=== PATIENT | male | born 1950 | race Caucasian/White ===

== ENCOUNTER 2020-11-25 11:44 | Day surgery (SDC) | payer MEDICARE, BC ==
[~2020-11-25] VITALS: Ht 175.3 cm; Wt 81.0 kg
[2020-11-25] VITALS (10 sets, daily range): BP systolic 116–163; BP diastolic 51–69; PULSE 60–87; TEMP 97.6–98.1
[2020-11-25] MEDS ORDERED: CYMBALTA 20MG20 MG PO (13:10)
[2020-11-25] MEDS ORDERED: FLOMAX 0.40.4 MG/CAP PO (13:13)
[2020-11-25] MEDS ORDERED: MASON NATURAL2000 IU PO (13:15)
[2020-11-25] MEDS ORDERED: PRILOSEC 20MG20 MG PO (13:16)
--- NOTE | 2020-11-25 16:55 | NUR ---
Patient up from OR, spouse at bedside. Alert and oriented x 3. CBI infusing at moderate rate, urine pink. Post op fluids and post op VSS. Spouse at bedside. Denies pain or needs at this time.
--- NOTE | 2020-11-25 18:22 | NUR ---
Patient doing well, CBI continues infusing at moderate rate, urine pink. Patient tolerating clear liquids without complications. Denies further needs at this time. 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
--- NOTE | 2020-11-25 20:25 | NUR ---
Patient have a CBI going. He complains of pain and Tylenol 650 mg given. He is awake and alertx3. Very nice naz and just wanted to have some rest tonight Melatonin given.
[2020-11-26 04:24] VITALS: BP 120/61; PULSE 72; TEMP 98.4
[2020-11-26 07:40] VITALS: BP 132/67; PULSE 75; TEMP 97.1
--- NOTE | 2020-11-26 08:30 | NUR ---
Patient in bed resting. Alert and oriented x 3. Assesmsent complete. CBI infusing at very slow rate. Urine peach; red-tinged with movement then clears up. IV to INT. Tolerating diet so patient increased to general diet. Denies pain at this time. Denies further needs at this time.
--- NOTE | 2020-11-26 09:29 | NUR ---
Patient ambulated >150 ft with SBA, steady gait. Denies pain at this dinora. CBI clamped, urine pale yellow at this time.
--- NOTE | 2020-11-26 10:44 | NUR ---
First visit from the renal dietitian. No needs right now.
[2020-11-26 11:44] VITALS: BP 117/61; PULSE 88; TEMP 98.3
--- NOTE | 2020-11-26 14:02 | NUR ---
Sw met with the pt who stated his preference to return home once medically stable. The pt lives at home with his , Jacinta (ph# [phone]). The pt is independent on all ADLs and uses a CPAP at home. The pt pcp is Lan Holguin and gets his medications from [facility] in [place], [place] and has no trouble obtaining them. The pt has never used HH before. The pt has a DPAO-HC, but is not in chart. No other needs stated at this time. Sw to await further recommendations and follow up as needed. D/C: Home with
[2020-11-26 16:06] VITALS: BP 141/64; PULSE 86; TEMP 97.6
--- NOTE | 2020-11-26 17:56 | NUR ---
Discharge education provided to patient. Educated on when to call provider and scheduling follow up appointment. Educated on activity and follow up appointment. All questions answered. INT to right hand discontinued, catheter tip intact. Denies further needs at this time.
== END 2020-11-26 18:00 | disposition home or self-care (01) ==
LOC: SDCO 11:44 → SURG 17:28 → SDCO 11-26 18:00
DX: N40.1 Benign prostatic hyperplasia with lower urinary tract symptoms (principal); R39.12 Poor urinary stream; I10 Essential (primary) hypertension; M19.90 Unspecified osteoarthritis, unspecified site; G20 Parkinson's disease; M48.061 Spinal stenosis, lumbar region without neurogenic claudication; G70.9 Myoneural disorder, unspecified; G47.33 Obstructive sleep apnea (adult) (pediatric); F32.9 Major depressive disorder, single episode, unspecified; Z79.899 Other long term (current) drug therapy; Z20.822 Contact with and (suspected) exposure to COVID-19; Z99.89 Dependence on other enabling machines and devices
CPT/HCPCS: OP; J0360; J0690; J1100; J2405; J2704; J3010; J3480; J7120